=== PATIENT | female | born 1935 | race Caucasian/White ===

== ENCOUNTER 2020-12-01 11:30 | Outpatient (CLI) | payer MEDICARE, BC ==
[2020-12-01] MEDS ORDERED: PANT-47 PO (15:25)
[2020-12-01] MEDS ORDERED: ZOLP5TAB2 PO (15:25)
[2020-12-01] MEDS ORDERED: CLOP75TA15 PO (15:25)
[2020-12-01] MEDS ORDERED: NICO-630 TOP (15:25)
[2020-12-01] MEDS ORDERED: ASPI-83 PO (15:25)
[2020-12-01] MEDS ORDERED: ATOR40TA7 PO (15:25)
[2020-12-01 15:42] LABS: CLARITY,URINE SLIGHTLY CLOUDY (Clear); GLUCOSE, URINE NEGATIVE (Neg); KETONES,URINE NEGATIVE (Neg); LEUKOCYTE ESTERASE ,URINE NEGATIVE (Neg); NITRITES, URINE NEGATIVE (Neg); OCCULT BLOOD,URINE LARGE (Neg); PROTEIN,URINE 30 mg/dl (Neg)
[2020-12-01 15:46] LABS: BASOPHILS % (AUTO) 0.6 % (0-1); EOSINOPHILS % (AUTO) 0.6 % (0-6); LYMPHOCYTES # (AUTO) 0.6 X10'3 (1.1-4.8); LYMPHOCYTES % (AUTO) 7.6 % (21-51); MEAN CORPUSCULAR HEMOGLOBIN 24.7 PG (27.0-31.0); MEAN CORPUSCULAR HGB CONC 31.4 g/dL (33.0-36.5); MEAN CORPUSCULAR VOLUME 78.5 FL (78-98); MEAN PLATELET VOLUME 7.2 FL (7.4-10.4); MONOCYTES # (AUTO) 0.7 X10'3 (0-0.9); MONOCYTES % (AUTO) 9.1 % (2-12); NEUTROPHILS # (AUTO) 6.2 X10'3 (1.8-7.7); NEUTROPHILS % (AUTO) 82.1 % (42-75); PRE OP INR 1.2 INR; PRE OP PLATELET COUNT 450 X10'3 (140-440); PRE OP PROTIME 12.5 SECONDS (9.0-12.0); RED BLOOD COUNT 2.57 X10'6 (4.20-5.60); RED CELL DISTRIBUTION WIDTH 22.3 % (11.5-14.5)
[2020-12-01 15:47] LABS: ALBUMIN 2.4 G/DL (3.4-5.0); ALBUMIN/GLOBULIN RATIO 0.5 (1.1-1.5); ALKALINE PHOSPHATASE 145 IU/L (46-116); BLOOD UREA NITROGEN 24 MG/DL (7-18); BUN/CREATININE RATIO 22.6 (6.6-38.0); CALCIUM 8.8 MG/DL (8.5-10.1); CHLORIDE 101 MMOL/L (99-107); CREATININE 1.06 MG/DL (0.40-0.90); PRE OP ALT 16 U/L (30-65); PRE OP ANION GAP 9 (8-16); PRE OP AST 30 U/L (10-37); PRE OP BILIRUB, TOTAL 0.3 MG/DL (0.0-1.0); PRE OP SODIUM 138 MMOL/L (135-145); TOTAL PROTEIN 7.6 G/DL (6.4-8.2); eGFR 49 ML/MIN
[2020-12-01 15:48] LABS: PRE OP HEMOGLOBIN 6.3 g/dL (12.0-16.0)
[2020-12-01 15:49] LABS: PRE OP HEMATOCRIT 20.2 % (35.0-45.0)
[2020-12-01 15:50] LABS: PRE OP GLUCOSE 204 MG/DL (70-104)
[2020-12-01 15:51] LABS: COLOR,URINE DARK YELLOW (Yellow); UA COLLECTION TYPE CLN CATCH MIDSTREAM
[2020-12-01 15:53] LABS: RBC,URINE 0-2 /HPF (0-2)
[2020-12-01 15:54] LABS: BACTERIA,URINE 3+ /HPF (Neg); MUCUS STRANDS FEW /LPF (Neg); SQUAMOUS EPITHELIAL CELL,UR MODERATE /LPF (FEW)
[2020-12-01 16:30] LABS: HEMOGLOBIN A1C 5.9 % (4.5-6.2)
[2020-12-01 16:32] LABS: ANISOCYTOSIS 3+; HYPOCHROMASIA 3+; PLATELET ESTIMATE INCREASED
[2020-12-01 16:33] LABS: MICROCYTOSIS 1+
[2020-12-01 16:34] LABS: ELLIPTOCYTES FEW; POLYCHROMASIA 2+
== END 2020-12-01 23:59 | disposition home or self-care (01) ==
LOC: PRE-OP 11:30 → EDSTATUS 12-04 09:00
PROVIDERS: ATTEND Surgery
DX: Z01.818 Encounter for other preprocedural examination (principal); R91.8 Other nonspecific abnormal finding of lung field; R00.0 Tachycardia, unspecified
CPT/HCPCS: 36415; 71046; 80053; 81001; 83036; 85008; 85025; 85610; 85730; 86885; 86900; 86901; 87077; 87081; 87088; 87186; 93005